=== PATIENT | female | born 2005 | race Two or more races ===

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

== ENCOUNTER → 2024-11-18 | Emergency (ER) | payer OTHER ==
[~2024-11-18] VITALS: Ht 154.9 cm; Wt 56.7 kg
[~2024-11-18] MED LIST: AVAPRO75 MG PO; IBUPROFEN800 MG PO; KETOROLAC TROMETHAMINE 60 MG VIAL IM ONE; LOSARTAN POTASS25 MG PO
== END | disposition home or self-care (01) ==
LOC: ER 14:28
DX: S69.82XA Other specified injuries of left wrist, hand and finger(s), initial encounter (principal); X83.8XXA Intentional self-harm by other specified means, initial encounter; Y93.89 Activity, other specified; Y92.810 Car as the place of occurrence of the external cause; Y99.8 Other external cause status